=== PATIENT | female | born 1955 | race Caucasian/White ===

== ENCOUNTER → 2017-12-04 | Outpatient (CLI) | payer OTHER ==
[~2017-12-04] MED LIST: Carafate1 GM/10 ML PO; Colace100 MG PO; DULO30 PO; ESTNOR PO; ESTRADIAL PO; ESTROVAN; GABA100 PO; HYDACE5 PO; LORA.5; LORA10ER; LORA10ER PO; LORA2 PO; MECL25 PO; METO25ER PO; OMEP10ER; ONDA4ODT MM; OXYACE5T PO; OXYACE7.5T PO; OXYC5 PO; PANT20 PO; PRED1 PO; PROG100 PO; PROM25 PO; RXLORA1 PO; RXONDA4ODT MM
[2017-12-04 17:07] LABS: BASOPHILS ABSOLUTE AUTO 0.04 K/mm3 (0.00-0.23); BASOPHILS PERCENT AUTO 0 % (0-2); EOSINOPHILS PERCENT AUTO 0 % (0-6); Hematocrit 34.5 % (33.0-51.0); Hemoglobin 11.4 g/dL (11.5-16.0); IMMATURE GRAN ABSOLUTE AUTO 0.07 K/mm3 (0.00-0.10); IMMATURE GRAN PERCENT AUTO 1 % (0-1); LYMPHOCYTES PERCENT AUTO 8 % (21-46); MONOCYTES ABSOLUTE AUTO 0.72 K/mm3 (0.16-1.47); MONOCYTES PERCENT AUTO 5 % (4-13); Mean Corpuscular HGB 30.8 pg (26.0-34.0); Mean Corpuscular Volume 93 fL (80-100); NEUTROPHILS ABSOLUTE AUTO 11.89 K/mm3 (1.96-9.15); NEUTROPHILS PERCENT AUTO 86 % (41-73); Platelet Count 347 K/mm3 (150-400); RDW Coefficient Variation 12.1 % (11.7-14.2); RDW Standard Deviation 41.1 fL (35.1-46.3); White Blood Cell Count 13.82 K/mm3 (4.00-11.30)
[2017-12-04 17:19] LABS: Alanine Aminotransfer (ALT/SGP 18 U/L (12-78); Albumin, Blood 3.3 g/dL (3.4-5.0); Albumin/Globulin Ratio 0.9 (0.8-1.8); Alk Phos 70 U/L (40-126); Anion Gap 7 mmol/L (6-16); Aspartate Aminotrans (AST/SGOT 13 U/L (12-37); Bilirubin, Total 0.5 mg/dL (0.1-1.0); Blood Urea Nitrogen 8 mg/dL (8-24); Bun/Creatinine Ratio 8.9 (12.0-20.0); CO2, Blood 28 mmol/L (21-32); Chloride, Blood 101 mmol/L (98-108); Globulin, Blood 3.6 g/dL (2.2-4.0); Glomerular Filtration Rate >60 (60-); Glucose, Blood 130 mg/dL (70-99); Potassium, Blood 3.4 mmol/L (3.5-5.5); Sodium, Blood 136 mmol/L (136-145); Total Protein, Blood 6.9 g/dL (6.4-8.2)
[2017-12-04 17:22] LABS: Troponin I <0.017 ng/mL (0.000-0.040)
== END | disposition home or self-care (01) ==
LOC: LAB EV 17:00
PROVIDERS: Physician Assistant
DX: R07.89 Other chest pain (principal); R00.0 Tachycardia, unspecified
CPT/HCPCS: 80053; 84443; 84484; 85025

== ENCOUNTER → 2022-02-24 | Outpatient (CLI) | payer OTHER | END | disposition home or self-care (01) | LOC: LAB SHORT 15:18 → PLD 15:18 | DX: D48.5 Neoplasm of uncertain behavior of skin (principal) | CPT/HCPCS: 88305 ==

== ENCOUNTER 2023-10-07 02:40 | Observation (INO) | payer OTHER ==
[~2023-10-07] VITALS: Ht 162.6 cm; Wt 42.4 kg
[2023-10-07 03:19] LABS: BASOPHILS ABSOLUTE AUTO 0.06 K/mm3 (0.00-0.23); BASOPHILS PERCENT AUTO 1 % (0-2); EOSINOPHILS ABSOLUTE AUTO 0.05 K/mm3 (0.00-0.68); EOSINOPHILS PERCENT AUTO 0 % (0-6); IMMATURE GRAN ABSOLUTE AUTO 0.05 K/mm3 (0.00-0.10); IMMATURE GRAN PERCENT AUTO 0 % (0-1); LYMPHOCYTES ABSOLUTE AUTO 4.83 K/mm3 (0.84-5.20); LYMPHOCYTES PERCENT AUTO 41 % (21-46); MONOCYTES ABSOLUTE AUTO 0.61 K/mm3 (0.16-1.47); MONOCYTES PERCENT AUTO 5 % (4-13); Mean Corpuscular HGB 31.6 pg (26.0-34.0); Mean Corpuscular HGB Conc 32.6 g/dL (31.5-36.5); Mean Corpuscular Volume 97 fL (80-100); Mean Platelet Volume 9.8 fL (9.1-12.4); NEUTROPHILS ABSOLUTE AUTO 6.15 K/mm3 (1.96-9.15); NEUTROPHILS PERCENT AUTO 52 % (41-73); Platelet Count 303 K/mm3 (150-400); RDW Standard Deviation 43.8 fL (35.1-46.3); Red Blood Cell Count 4.43 M/mm3 (3.80-5.20); White Blood Cell Count 11.75 K/mm3 (4.00-11.30)
[2023-10-07 03:40] LABS: Albumin, Blood 4.1 g/dL (3.4-5.0); Albumin/Globulin Ratio 1.4 (0.8-1.8); Bilirubin, Total 0.5 mg/dL (0.1-1.0); Bun/Creatinine Ratio 11.3 (12.0-20.0); Calcium, Blood 9.4 mg/dL (8.5-10.1); Creatinine, Blood 0.98 mg/dL (0.40-1.00); Globulin, Blood 2.9 g/dL (2.2-4.0); Potassium, Blood 3.8 mmol/L (3.5-5.5)
[2023-10-07 07:05] LABS: International Normalized Ratio 0.96; Prothrombin Time Results 10.1 Sec (9.7-11.5)
[2023-10-07 07:26] LABS: Anti-Xa UFH, PHA Monitoring <0.10 IU/mL
[2023-10-07 08:14] VITALS: BP 128/79
--- NOTE | 2023-10-07 10:16 | NUR ---
AM/ARRIVAL NOTE: PT ARRIVED INT HE ROOM AT APPROX 0800A, PT IS HERE FOR CHEST PAIN CARDIAC WORK-UP IS DONE TRENDING TROPONINS. NO ACTIVE CHEST PAIN SINCE ARRIVAL. PT HAS BEEN ALERT AND ORIETNTED X4, PLEASANT AND COOPERATIVE. VITALS HRR SR 70-90'S, SBP 120'S, SATS ABOVE 95% ON RA, AFEBRILE. HEPARIN GTT STARTED AT 15U/KG/HR, NS AT 75MLS/HR TO INFUSE ONE BAG PER ORDER. NO OTHER ISSUES RIGHT NOW CALL LIGHTS IN REACH WILL CONTINUE TO MONITOR
[2023-10-07 11:49] VITALS: BP 114/76
[2023-10-07 16:09] VITALS: BP 113/72
--- NOTE | 2023-10-07 16:59 | NUR ---
PT DISCHARGE TO HOME TODAY WITH DISCHARGE ORDERS. TROPONIN TRENDS <59 TRENDING DOWN LAST WAS 28, PT HAS BEEN CHEST PAIN FREE SINCE ADMISSION. PT HAS BEEN GOING TO THE BATHROOM INDEPENDENTLY NO CARDIAC EVENTS ON TELE. VITALS HRR SINUS RHYTHM 70'S, SBP 110'S, SATS ABOVE 95% ON RA, AFEBRILE. RESPIRATIONS EVEN AND UNALABORED. ZIO PATCH WAS PLACED PRIOR TO DISCHARGE INSTRUCTIONS PROVIDED BY THE [facility] NURSE. FF-UP APPT WITH PCP SCHEDULED ON Thursday10/12/23 CARDIAC STRESS TEST OUT PT. NO NEW MEDICATIONS. DISCHARGE INFORMATIONA ND INSTRUCTIONS DISCLOSED WITH THE PT AND SON (DARLIN) AT THE BEDSIDE. NO OTHER ISSUES ECNOUNTERED PT ACCOMPANIED AMBULATORY FOR TRANSPORT, ALL BELONGINGS SENT WITH THE PT
== END 2023-10-07 16:50 | disposition home or self-care (01) ==
LOC: ER 02:40 → PCU 02:41 → ERHOLD 02:41 → PCU 08:01
PROVIDERS: Emergency Medicine; ADMIT Internal Medicine
DX: R07.89 Other chest pain (principal); K21.9 Gastro-esophageal reflux disease without esophagitis; Z88.0 Allergy status to penicillin; Z88.8 Allergy status to other drugs, medicaments and biological substances; Z79.899 Other long term (current) drug therapy
CPT/HCPCS: 36415; 71045; 80053; 84443; 84484; 85025; 85520; 85610; 85730; 93005; 93010; 93246; 96360; 96361; 96365; 96366; 99285-25; A9270; G0378; J1644; J7030

== ENCOUNTER 2025-05-24 08:40 | Emergency (ER) | payer OTHER ==
[~2025-05-24] VITALS: Ht 157.5 cm; Wt 56.7 kg
[2025-05-24] MEDS ORDERED: Ondansetron HCl 2 MG / ML 2ML Vial IV ONE (09:10)
[2025-05-24] MEDS ORDERED: HYDROmorphone HCl/Pf 1MG SYR IV ONE ×4 (09:10→18:05)
[2025-05-24 09:48] LABS: BASOPHILS ABSOLUTE AUTO 0.06 K/mm3 (0.00-0.23); BASOPHILS PERCENT AUTO 0 % (0-2); EOSINOPHILS ABSOLUTE AUTO 0.01 K/mm3 (0.00-0.68); EOSINOPHILS PERCENT AUTO 0 % (0-6); Hematocrit 43.3 % (33.0-51.0); Hemoglobin 14.2 g/dL (11.5-16.0); IMMATURE GRAN ABSOLUTE AUTO 0.31 K/mm3 (0.00-0.10); IMMATURE GRAN PERCENT AUTO 2 % (0-1); LYMPHOCYTES ABSOLUTE AUTO 1.26 K/mm3 (0.84-5.20); LYMPHOCYTES PERCENT AUTO 8 % (21-46); MONOCYTES ABSOLUTE AUTO 0.37 K/mm3 (0.16-1.47); MONOCYTES PERCENT AUTO 3 % (4-13); Mean Corpuscular HGB Conc 32.8 g/dL (31.5-36.5); Mean Corpuscular Volume 99 fL (80-100); NEUTROPHILS ABSOLUTE AUTO 12.92 K/mm3 (1.96-9.15); NEUTROPHILS PERCENT AUTO 87 % (41-73); NRBC ABSOLUTE 0.00 K/mm3 (0.00-0.02); NRBC Auto 0.0 /100 WBC (0.0-0.2); Platelet Count 247 K/mm3 (150-400); RDW Coefficient Variation 12.0 % (11.7-14.2); RDW Standard Deviation 43.8 fL (35.1-46.3)
[2025-05-24] MEDS ORDERED: Metoclopramide HCl 5MG / ML 2ML Vial IV ONE ×2 (10:00→18:10)
[2025-05-24 10:16] LABS: Alanine Aminotransfer (ALT/SGP 199.0 U/L (12-78); Albumin, Blood 3.7 g/dL (3.4-5.0); Albumin/Globulin Ratio 1.4 (0.8-1.8); Anion Gap 3.0 mmol/L (3-11); Aspartate Aminotrans (AST/SGOT 115.0 U/L (12-37); Bilirubin, Total 1.6 mg/dL (0.1-1.0); Blood Urea Nitrogen 12.0 mg/dL (8-24); CO2, Blood 29.0 mmol/L (21-32); Calcium, Blood 8.8 mg/dL (8.5-10.1); Chloride, Blood 102.0 mmol/L (98-108); Creatinine, Blood 0.91 mg/dL (0.40-1.00); Globulin, Blood 2.7 g/dL (2.2-4.0); Glucose, Blood 103.0 mg/dL (70-99); Potassium, Blood 3.7 mmol/L (3.5-5.5); Sodium, Blood 130.0 mmol/L (136-145); Total Protein, Blood 6.4 g/dL (6.4-8.2)
[2025-05-24 15:13] LABS: Bilirubin, Direct 0.7 mg/dL (0.0-0.3); Bilirubin, Indirect 0.7 mg/dL (0.1-0.7); Bilirubin, Total 1.4 mg/dL (0.1-1.0)
[2025-05-24] MEDS ORDERED: CefTRIAXone Sodium 2,000 MG in NS 100 ML IV ONE (18:00)
[2025-05-24 19:15] VITALS: BP 112/65
== END 2025-05-24 19:33 | disposition short-term general hospital (02) ==
LOC: ER 08:40
PROVIDERS: Emergency Medicine; Surgery
DX: K80.70 Calculus of gallbladder and bile duct without cholecystitis without obstruction (principal); K21.9 Gastro-esophageal reflux disease without esophagitis; Z88.0 Allergy status to penicillin; Z88.8 Allergy status to other drugs, medicaments and biological substances; Z79.899 Other long term (current) drug therapy
CPT/HCPCS: 71045; 71275; 74175; 74181; 80053; 82247; 82248; 83690; 84484; 85025; 85379; 93005; 93010; 96365-59; 96375-59; 96376-59; 99285-25; J0696; J1171; J2405; J2765; Q9967